=== PATIENT | female | born 1990 | race Caucasian/White ===

== ENCOUNTER 2020-03-29 09:30 | Emergency (ER) | payer OTHER, SELFPAY ==
[2020-03-29 09:50] VITALS: BP 118/67; PULSE 71; RESP 14; TEMP 36.6; O2SAT 100
--- NOTE | 2020-03-29 10:35 | ED.GENADULT ---
HPI - General Adult General Chief complaint: Upper Respiratory Infection Stated complaint: Right side of throat Time Seen by Provider: 03/29/20 10:35 Source: patient and RN notes reviewed Mode of arrival: ambulatory Limitations: no limitations History of Present Illness HPI narrative: 29-year-old female presents with complaints of sore throat and PND for 1 day. Claritin-D and Aleve with little relief. No high fevers, drooling, neck or throat swelling. Pain is unilateral, right per Cherelle. Hurts to swallow. Exacerbation factors consist of smoke exposure, PND, eating and drinking. No rhinorrhea and nasal congestion. No voice change. Denies chills, dyspnea, difficulty swallowing, jaw pain, dental pain, facial pain, foreign body sensation, and rash. Remains active. Cherelle denies being , LMP 03/19/20 and on control. The patient reports she have not been diagnosed with COVID-19. The patient reports she is not waiting for the results of a COVID-19 lab test. The patient reports she do not have fever, chills, weakness, fatigue, myalgia, or facial swelling. The patient reports she do not have a new or worsening cough or shortness of breath. Denies chest pain. The patient reports she do not have any rhinorrhea, congestion, nausea, vomiting, abdominal pain, and diarrhea. Tolerating po intake well. Denies recent traveling. Denies concerns for COVID-19 or exposures been home since [id number] order except for essential household needs, working, and return home. At this time, patient is not suspected of having COVID-19. Some parts of this dictation were generated by voice recognition software and may contain typographical and/or grammatical inaccuracies. Related Data Home Medications Medication Instructions Recorded Confirmed norgestrel-ethinyl estradiol 1 tablet PO DAILY 03/29/20 03/29/20 [Low-Ogestrel (28)] Allergies Allergy/AdvReac Type Severity Reaction Status Date / Time ibuprofen Allergy Unknown Swelling Verified 03/29/20 10:05 morphine Allergy Unknown Swelling Verified 03/29/20 10:05 Review of Systems Review of Systems: Narrative: CONSTITUTIONAL: Denies fever, chills, sweats. EYES: Denies visual changes, redness, discharge. ENT: Denies rhinorrhea, congestion, otalgia. Complains of RT side sore throat. CARDIOVASCULAR: Denies chest pain, palpitations, edema. RESPIRATORY: Denies dyspnea, wheezing, cough. GASTROINTESTINAL: Denies abdominal pain, nausea, vomiting, diarrhea. GENITOURINARY: Denies dysuria, hematuria, abnormal discharge. SKIN: Denies rash or itching. MUSCULOSKELETAL: Denies acute back pain, joint pain, or myalgia. NEUROLOGIC: Denies numbness or focal weakness. PSYCHIATRIC: Denies anxiety or depression. All systems reviewed & are unremarkable except as noted in HPI and below. [facility] Past Medical History Medical History (Updated 03/29/20 @ 11:00 by MELO Bergeron) Anxiety delivery delivered Depression Seasonal allergies Surgical History Surgical History (Updated 03/29/20 @ 11:00 by MELO Bergeron) H/O section History of tonsillectomy Family History Family History (Updated 03/29/20 @ 11:02 by MELO Bergeron) Father Hypertension Mother Alive and well Mother was adopted and family medical history unknown Social History Social History (Updated 03/29/20 @ 11:03 by MELO Bergeron) Smoking packs per day: 0.5 Smoking cigarettes per day: 10.0 Years smoked: 13 Smoking pack-years: 6.50 Smoking status: Current every day smoker Tobacco type: cigarettes Second hand tobacco smoke exposure: No Alcohol intake: current Substance use: never Living arrangements: with family Occupation/Education: occupation Gender identity (if verbalized by the patient): Female Comments At time of signature, agree with nurse past medical, surgical, social, and family history. There is no relevant family history p
== END 2020-03-29 10:50 | disposition home or self-care (01) ==
PROVIDERS: Emergency Provider Nurse Practitioner Family; PCP Physician Assistant
DX: J02.9 Acute pharyngitis, unspecified (principal); J30.9 Allergic rhinitis, unspecified; F17.210 Nicotine dependence, cigarettes, uncomplicated
CPT/HCPCS: 87081; 87880; 99213; G0463

== ENCOUNTER 2020-12-03 10:17 | Emergency (ER) | payer OTHER, SELFPAY ==
[2020-12-03 10:35] VITALS: BP 110/76; PULSE 98; RESP 16; TEMP 37.1; O2SAT 100
--- NOTE | 2020-12-03 10:47 | ED.URI ---
HPI - URI/Sore Throat General Chief Complaint: Upper Respiratory Infection Stated Complaint: sinus issues and fever Source: patient Mode of arrival: ambulatory Limitations: no limitations History of Present Illness HPI Narrative: Patient is a 30-year-old female who presents complaining of congestion, sore throat, runny nose and malaise x2 days. She reports mild cough, denies chest pain or shortness of breath. 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 She reports taking Aleve this a.m. without relief. MD elicited complaint: sore throat, rhinorrhea and nasal congestion Related Data Home Medications Medication Instructions Recorded Confirmed norgestrel-ethinyl estradiol 1 tablet PO DAILY 03/29/20 03/29/20 [Low-Ogestrel (28)] Allergies Allergy/AdvReac Type Severity Reaction Status Date / Time ibuprofen Allergy Unknown Swelling Verified 12/03/20 10:47 morphine Allergy Unknown Swelling Verified 12/03/20 10:47 Review of Systems Review of Systems: Narrative: CONSTITUTIONAL: Denies fever, chills, or sweats. EYES: Denies visual changes, redness, or discharge. ENT:Reports rhinorrhea, congestion, and sore throat. CARDIOVASCULAR: Denies chest pain, palpitations, or edema. RESPIRATORY: Reports mild cough, denies dyspnea. GASTROINTESTINAL: Denies abdominal pain, nausea, vomiting, or diarrhea. GENITOURINARY: Denies dysuria or hematuria. SKIN: Denies rash or itching. MUSCULOSKELETAL: Denies back pain, joint pain, or myalgia. NEUROLOGIC: Denies headache, numbness, dizziness, or weakness. PSYCHIATRIC: Denies anxiety or depression. [facility] Past Medical History Medical History Anxiety delivery delivered Depression Seasonal allergies Surgical History Surgical History H/O section History of tonsillectomy Family History Family History Father Hypertension Mother Alive and well Mother was adopted and family medical history unknown Social History Social History Smoking packs per day: 0.5 Smoking cigarettes per day: 10.0 Years smoked: 13 Smoking pack-years: 6.50 Smoking status: Current every day smoker Tobacco type: cigarettes Second hand tobacco smoke exposure: No Alcohol intake: current Substance use: never Gender identity (if verbalized by the patient): Female Comments At the time of signature, I have reviewed and agree with nursing past medical, surgical, social, and family history unless otherwise noted. Please see nursing chart for further information. There is no relevant family history pertinent to the presenting complaint. Exam Narrative: Exam Narrative: GENERAL: Well-appearing, well-nourished, and in no acute distress. HEAD: Normocephalic, atraumatic. EYES: No redness or drainage. Conjunctiva are normal. ENT: Mucous membranes pink and moist. Nares clear. No rhinorrhea. Throat normal. Uvula midline. NECK: AROM. Supple. No lymphadenopathy. CHEST: No respiratory distress. EXTREMITIES: Normal range of motion. No edema. SKIN: Warm, dry, no rash. NEURO: No focal deficits. Alert and oriented x3. Gait steady. PSYCH: Normal affect. No signs of depression or anxiety. MDM - URI/Sore Throat MDM Narrative Medical decision making narrative: Patient's rapid Covid was negative at this time. PCR sent to the lab. Discussed with patient quarantining and treatment of symptoms. Patient is stable for discharge to home with outpatient follow-up as discussed Differential Diagnosis Differential diagnosis: Likely upper respiratory infection, otitis media, viral infection and pharyngitis Lab Data Attestation: I reviewed the patient's lab results. Lab results narrative: Rapid Covid negative Critical Care Time C
[2020-12-03 10:49] VITALS: BP 110/76; PULSE 98; RESP 16; TEMP 37.1; O2SAT 100
[2020-12-04 18:19] LABS: SARS-CoV-2 RNA PCR Negative
== END 2020-12-03 11:15 | disposition home or self-care (01) ==
PROVIDERS: Emergency Provider Nurse Practitioner
DX: J06.9 Acute upper respiratory infection, unspecified (principal); Z20.822 Contact with and (suspected) exposure to COVID-19; F17.210 Nicotine dependence, cigarettes, uncomplicated
CPT/HCPCS: 87426; 99213; C9803; G0463; U0003; U0005

== ENCOUNTER 2021-01-17 09:52 | Emergency (ER) | payer OTHER, SELFPAY ==
[2021-01-17 10:05] VITALS: BP 116/66; PULSE 76; RESP 18; TEMP 36.8; O2SAT 99
[2021-01-17 10:33] VITALS: BP 116/66; PULSE 76; RESP 18; TEMP 36.8; O2SAT 99
--- NOTE | 2021-01-17 10:42 | ED.GENADULT ---
HPI - General Adult General Chief complaint: Unspecified Stated complaint: covid test Time Seen by Provider: 01/17/21 10:32 Source: patient and RN notes reviewed Mode of arrival: ambulatory Limitations: no limitations History of Present Illness HPI narrative: Patient presents today requesting a rapid Covid test. She was exposed to someone with Covid approximately 4 days ago. She does not currently have any symptoms. States she does have anxiety and has checked her temperature many many times in the last 4 days and it has been negative. complaint: Rapid Covid test Related Data Home Medications Medication Instructions Recorded Confirmed norgestrel-ethinyl estradiol 1 tablet PO DAILY 03/29/20 01/17/21 [Low-Ogestrel (28)] Allergies Allergy/AdvReac Type Severity Reaction Status Date / Time ibuprofen Allergy Unknown Swelling Verified 01/17/21 10:07 morphine Allergy Unknown Swelling Verified 01/17/21 10:07 Review of Systems Review of Systems: Narrative: CONSTITUTIONAL: Denies body aches, fever, chills, or sweats. EYES: Denies visual changes, redness, or discharge. ENT: Denies rhinorrhea, congestion, sore throat, or otalgia. CARDIOVASCULAR: Denies chest pain, palpitations, or edema. RESPIRATORY: Denies cough or dyspnea. GASTROINTESTINAL: Denies abdominal pain, nausea, vomiting, or diarrhea. GENITOURINARY: Denies dysuria or hematuria. SKIN: Denies rash, itching, or wounds. MUSCULOSKELETAL: Denies back pain, joint pain, or myalgia. NEUROLOGIC: Denies headache, numbness, tingling, or weakness. PSYCH: Denies depression or anxiety. [facility] Past Medical History Medical History Anxiety delivery delivered Depression Seasonal allergies Surgical History Surgical History H/O section History of tonsillectomy Family History Family History Father Hypertension Mother Alive and well Mother was adopted and family medical history unknown Social History Social History Smoking packs per day: 0.5 Smoking cigarettes per day: 10.0 Years smoked: 13 Smoking pack-years: 6.50 Smoking status: Current every day smoker Tobacco type: cigarettes Second hand tobacco smoke exposure: No Alcohol intake: current Substance use: never Gender identity (if verbalized by the patient): Female Comments At time of signature, I have reviewed and agree with nursing past medical, surgical, social and family history unless otherwise noted. Please see nursing chart for further information. There is no relevant family history pertinent to the presenting complaint Exam Narrative: Exam Narrative: GENERAL: Well-appearing, well-nourished, and in no acute distress. HEAD: Normocephalic, atraumatic. EYES: EOMI. No redness or drainage. Conjunctivae normal. ENT: Mucous membranes pink and moist. Nares clear. No rhinorrhea. TMs normal bilaterally. Throat normal. Uvula midline. NECK: Normal AROM. Supple. No lymphadenopathy. CHEST: No respiratory distress. Clear to auscultation. HEART: Regular rate and rhythm. No murmur appreciated. Normal peripheral pulses. EXTREMITIES: Normal range of motion. No edema. SKIN: Warm, dry, no rash. Capillary refill normal. Normal skin turgor. NEURO: No focal deficits. Alert and oriented x3. Gait steady. PSYCH: Normal affect. No signs of depression or anxiety. Course Vital Signs Vital signs: Vital Signs Temperature 98.2 F 01/17/21 10:05 Pulse Rate 76 01/17/21 10:05 Respiratory Rate 18 01/17/21 10:05 Blood Pressure 116/66 01/17/21 10:05 Pulse Oximetry 99 01/17/21 10:05 Temperature 98.2 F 01/17/21 10:33 Pulse Rate 76 01/17/21 10:33 Respiratory Rate 18 01/17/21 10:33 Blood Pressure 116/66 01/17/21 10:33 Pulse Oximet
--- NOTE | 2021-01-17 16:31 | PC.NURSE ---
noted poc [facility] form sent
== END 2021-01-17 10:50 | disposition home or self-care (01) ==
PROVIDERS: Emergency Provider Nurse Practitioner
DX: Z20.822 Contact with and (suspected) exposure to COVID-19 (principal); F17.210 Nicotine dependence, cigarettes, uncomplicated
CPT/HCPCS: 87426; 99213; C9803; G0463

== ENCOUNTER 2021-01-24 10:37 | Emergency (ER) | payer OTHER, SELFPAY ==
[2021-01-24 10:42] VITALS: BP 124/74; PULSE 85; RESP 14; TEMP 37.3; O2SAT 100
--- NOTE | 2021-01-24 10:50 | ED.EAR ---
HPI - Ear Problem General Chief complaint: Ear Stated complaint: ear pain Time Seen by Provider: 01/24/21 10:50 Source: patient, RN notes reviewed and police Mode of arrival: ambulatory Limitations: no limitations History of Present Illness HPI Narrative: [id number]-year-old female presents to the [facility] with complaints of left ear pain for 3 days. States that the pain radiates to the left jaw and teeth. Denies fevers. Has tried taking allergy mediations one time. Related Data Home Medications Medication Instructions Recorded Confirmed desogestrel-ethinyl estradiol 1 tablet PO DAILY 01/24/21 01/24/21 [Isibloom] Allergies Allergy/AdvReac Type Severity Reaction Status Date / Time ibuprofen Allergy Unknown Swelling Verified 01/24/21 10:51 morphine Allergy Unknown Swelling Verified 01/24/21 10:51 Review of Systems Review of Systems: Narrative: CONSTITUTIONAL: Denies fever, chills, or sweats. EYES: Denies visual changes, redness, or discharge. ENT: Denies rhinorrhea, sore throat. reports left otalgia and congestion. CARDIOVASCULAR: Denies chest pain, palpitations, or edema. RESPIRATORY: Denies cough or dyspnea. GASTROINTESTINAL: Denies abdominal pain, nausea, vomiting, or diarrhea. SKIN: Denies rash or itching. MUSCULOSKELETAL: Denies back pain, joint pain, or myalgia. NEUROLOGIC: Denies headache, numbness, or weakness. PSYCHIATRIC: Denies anxiety or depression. All other systems reviewed are negative, except as documented in HPI. [facility] Past Medical History Medical History Anxiety delivery delivered Depression Seasonal allergies Surgical History Surgical History H/O section History of tonsillectomy Family History Family History Father Hypertension Mother Alive and well Mother was adopted and family medical history unknown Social History Social History Smoking packs per day: 0.5 Smoking cigarettes per day: 10.0 Years smoked: 13 Smoking pack-years: 6.50 Smoking status: Current every day smoker Tobacco type: cigarettes Second hand tobacco smoke exposure: No Alcohol intake: current Substance use: never Gender identity (if verbalized by the patient): Female Comments At the time of my signature, I reviewed and agree with the nursing past medical, surgical, social, and family history. There is no relevant family history pertinent to the patient complaint. Exam Narrative: Exam Narrative: GENERAL: This is a well-nourished, well-developed patient, in no apparent distress. HEAD: normocephalic, atraumatic. EYES: PERRL. Sclera clear/white. Vision is grossly intact. EARS: External ears normal, auditory canals clear and without drainage bilaterally. Bilateral TMs without perforation. Bilateral TMs clear fluid lines noted with bulging on the left TM. NOSE: External nose normal with no obvious nasal discharge.bilateral nares with redness with left side injection noted. no rhinorrhea. THROAT: Mucous membranes moist, posterior pharynx clear. Moderate amount of postnasal drip NECK: Neck supple, non-tender without lymphadenopathy, masses or thyromegaly. CARDIOVASCULAR: Regular rate and rhythm without murmurs, gallops, or rubs. RESPIRATORY: Clear to auscultation. Breath sounds equal bilaterally. No wheezes, rales, or rhonchi. SKIN: warm, intact with no suspicious lesions or rash, good texture and turgor. NEURO: awake, alert, and oriented to person, place and time. There were no obvious focal neurologic abnormalities. EXTREMITIES: No joint tenderness, effusion, or edema noted. BACK: Nontender without deformity. Course Vital Signs Vital signs: Vital Signs Temperature 99.1 F 01/24/21 10:42 Pulse Rate 85 01/24/21 10:42 Respiratory Rate 14 01/24/21 10:42
== END 2021-01-24 11:07 | disposition home or self-care (01) ==
PROVIDERS: Emergency Provider Nurse Practitioner
DX: J30.9 Allergic rhinitis, unspecified (principal); H65.02 Acute serous otitis media, left ear; F17.210 Nicotine dependence, cigarettes, uncomplicated
CPT/HCPCS: 99211; G0463

== ENCOUNTER 2021-02-10 08:11 | Emergency (ER) | payer OTHER, SELFPAY ==
[2021-02-10 08:17] VITALS: BP 111/56; PULSE 86; RESP 20; TEMP 36.5; O2SAT 100
--- NOTE | 2021-02-10 08:18 | ED.URI ---
HPI - URI/Sore Throat General Chief Complaint: Upper Respiratory Infection Stated Complaint: Chest Congestion,Sore Throat Time Seen by Provider: 02/10/21 08:18 Source: patient and RN notes reviewed History of Present Illness HPI Narrative: Patient is a 30-year-old female who presents the urgent care with complaints of sore throat, chest congestion, body aches, chills, fatigue, nausea. Patient states that she was in contact at a birthday alliance party with a friend on Monday that just tested positive for Covid. Patient initially stated that her symptoms started yesterday and changed her story to Monday evening. Patient states that her throat is her main complaint. Reports of using Tylenol, Nasonex and Zyrtec without much improvement. Denies of any fevers. Denies any shortness of breath. No other acute complaints. No acute distress noted. Patient aware of the plan of care. Some parts of this dictation were generated by voice recognition software and may contain typographical and/or grammatical inaccuracies. Related Data Home Medications Medication Instructions Recorded Confirmed desogestrel-ethinyl estradiol 1 tablet PO DAILY 01/24/21 01/24/21 [Isibloom] Allergies Allergy/AdvReac Type Severity Reaction Status Date / Time ibuprofen Allergy Unknown Swelling Verified 02/10/21 08:42 morphine Allergy Unknown Swelling Verified 02/10/21 08:42 Review of Systems Review of Systems: Narrative: CONSTITUTIONAL: Denies fever. Reports of chills and sweats. Reports of fatigue EYES: Denies visual changes, redness, or discharge. ENT: Reports of sore throat and congestion CARDIOVASCULAR: Denies chest pain, palpitations, or edema. RESPIRATORY: Denies cough or dyspnea. GASTROINTESTINAL: Reports of nausea without vomiting, diarrhea or abdominal pain GENITOURINARY: Denies dysuria or hematuria. SKIN: Denies rash or itching. MUSCULOSKELETAL: Denies back pain, joint pain. Reports of body aches NEUROLOGIC: Denies headache, numbness, or weakness. All other systems reviewed are negative, except as documented in HPI. [facility] Past Medical History Medical History Anxiety delivery delivered Depression Seasonal allergies Surgical History Surgical History H/O section History of tonsillectomy Family History Family History Father Hypertension Mother Alive and well Mother was adopted and family medical history unknown Social History Social History Smoking packs per day: 0.5 Smoking cigarettes per day: 10.0 Years smoked: 13 Smoking pack-years: 6.50 Smoking status: Current every day smoker Tobacco type: cigarettes Second hand tobacco smoke exposure: No Alcohol intake: current Substance use: never Gender identity (if verbalized by the patient): Female Comments At the time of my signature, I reviewed and agree with the nursing past medical, surgical, social, and family history. There is no relevant family history pertinent to the patient complaint. Exam Narrative: Exam Narrative: GENERAL: This is a well-nourished, well-developed patient, in no apparent distress. HEAD: normocephalic, atraumatic. EYES: PERRL. Sclera clear/white. Vision is grossly intact. EARS: External ears normal, auditory canals clear and without drainage, TMs normal without perforation. Hearing grossly intact. NOSE: External nose normal with no obvious nasal discharge, nares without redness, no rhinorrhea. THROAT: Mucous membranes moist, mild to moderate erythema noted posterior oropharynx without exudate or ulceration. NECK: Neck supple, non-tender without lymphadenopathy CARDIOVASCULAR: Regular rate and rhythm without murmurs, gallops, or rubs. RESPIRATORY: Clear to auscultation. Breath sounds equal bilaterally. No wheezes, rales, or
[2021-02-11 16:56] LABS: SARS-CoV-2 RNA PCR Negative
== END 2021-02-10 08:47 | disposition home or self-care (01) ==
PROVIDERS: Emergency Provider Nurse Practitioner Family
DX: J06.9 Acute upper respiratory infection, unspecified (principal); Z20.822 Contact with and (suspected) exposure to COVID-19; F17.210 Nicotine dependence, cigarettes, uncomplicated
CPT/HCPCS: 87081; 87426; 87880; 99213; C9803; G0463; U0003; U0005

== ENCOUNTER 2021-05-20 08:00 | Emergency (ER) | payer OTHER, SELFPAY ==
[2021-05-20 08:10] VITALS: BP 98/62; PULSE 90; RESP 20; TEMP 36.1; O2SAT 100
--- NOTE | 2021-05-20 08:14 | ED.FEMALEGU ---
HPI - Female Genitourinary General Chief complaint: Urogenital-Female Stated complaint: poss uti Time Seen by Provider: 05/20/21 08:14 Source: patient and RN notes reviewed Mode of arrival: ambulatory Limitations: no limitations History of Present Illness HPI Narrative: 30-year-old female presents concern for urinary tract infection. Reports symptoms started 2 days ago with cloudy urine, frequency, dysuria, urgency, hematuria, nausea without vomiting. She reports due to the nausea she has not been able to drink much water. Reports she received a Covid vaccine earlier this week. She denies fever, body aches, chills, sweats, vomiting, diarrhea, flank pain. Denies intervention. MD elicited complaint: UTI Related Data Home Medications Medication Instructions Recorded Confirmed desogestrel-ethinyl estradiol 1 tablet PO DAILY 01/24/21 05/20/21 [Isibloom] Allergies Allergy/AdvReac Type Severity Reaction Status Date / Time ibuprofen Allergy Unknown Swelling Verified 05/20/21 08:20 of Lip/Tongue/Throat morphine Allergy Unknown Swelling Verified 05/20/21 08:20 Review of Systems Review of Systems: CONSTITUTIONAL: Denies malaise, chills, sweats, or fever. GASTROINTESTINAL: Denies abdominal pain, nausea, vomiting, diarrhea GENITOURINARY: Reports dysuria, frequency, urgency, hematuria. SKIN: Denies rash or itching. MUSCULOSKELETAL: Denies back pain, flank pain, or myalgia. All systems reviewed & are unremarkable except as noted in HPI and below PMF[facility] Past Medical History Medical History Anxiety delivery delivered Depression Seasonal allergies Surgical History Surgical History H/O section History of tonsillectomy Family History Family History Father Hypertension Mother Alive and well Mother was adopted and family medical history unknown Social History Social History Smoking packs per day: 0.5 Smoking cigarettes per day: 10.0 Years smoked: 13 Smoking pack-years: 6.50 Smoking status: Current every day smoker Tobacco type: cigarettes Second hand tobacco smoke exposure: No Alcohol intake: current Substance use: never Gender identity (if verbalized by the patient): Female Comments At time of signature, agree with nursing past medical, surgical, social and family history. There is no relevant family history pertinent to the presenting complaint Exam Narrative: GENERAL: Well-appearing, well-nourished, and in no acute distress. HEAD: Normocephalic. EYES: PERRLA, conjunctivae clear. NECK: Supple. No lymphadenopathy CHEST: Clear to auscultation. No respiratory distress. HEART: Regular rate and rhythm. ABDOMEN: Soft, nontender upon palpation, nondistended, normal active bowel sounds, no palpable or pulsatile masses, no guarding. No CVA tenderness SKIN: Warm, dry, no rash. NEURO: Alert and oriented x3. PSYCH: Normal mood and affect Course Course Emergency Course: Patient is aware of diagnosis, understands and agrees to treatment plan. Anticipatory guidance given. Patient agrees to follow-up as directed and is aware of reasons to seek care at the emergency department. Portions of this record may have been created with voice recognition software Vital Signs Vital signs: Reviewed. MDM - Female Genitourinary MDM Narrative Medical decision making narrative: Exam findings and UA show no acute concerns or changes; patient is non-toxic appearing and is in no distress. Patient is appropriate for outpatient treatment and follow-up. Differential Diagnosis Differential diagnosis: Likely urinary tract infection, vaginitis and cystitis Critical Care Time Critical Care Time Critical Care Time: No Discharge Plan Discharge Clinical Impression: Symptoms of uri
== END 2021-05-20 08:30 | disposition home or self-care (01) ==
PROVIDERS: Emergency Provider Nurse Practitioner
DX: R35.0 Frequency of micturition (principal); R30.0 Dysuria; R39.15 Urgency of urination; R51.9 Headache, unspecified; R11.0 Nausea
CPT/HCPCS: 81003; 87077; 87086; 87088; 87186; 99213; G0463

== ENCOUNTER 2021-06-14 11:02 | Emergency (ER) | payer OTHER, SELFPAY ==
[2021-06-14 11:10] VITALS: BP 108/67; PULSE 84; RESP 18; TEMP 37.2; O2SAT 100
[2021-06-14 11:36] VITALS: BP 108/67; PULSE 84; RESP 18; TEMP 37.2; O2SAT 100
--- NOTE | 2021-06-14 12:26 | ED.FEMALEGU ---
HPI - Female Genitourinary General Chief complaint: Urogenital-Female Stated complaint: Possible UTI Time Seen by Provider: 06/14/21 12:27 Source: patient Mode of arrival: ambulatory Limitations: no limitations History of Present Illness HPI Narrative: Cherelle Solano is a 30 yo female with no PMH who comes to [facility] with dysuria for the past 2 days. She is primarily complaining of frequency. She states her life has been pretty chaotic in the last week because her grandfather and there is been a lot of family stress going on she is not hydrating as much as she should and smoking a lot of cigarettes She has no back pain, no nausea, no vomiting, no diarrhea Related Data Home Medications Medication Instructions Recorded Confirmed desogestrel-ethinyl estradiol 1 tablet PO DAILY 01/24/21 06/14/21 [Isibloom] Allergies Allergy/AdvReac Type Severity Reaction Status Date / Time ibuprofen Allergy Unknown Swelling Verified 06/14/21 11:23 of Lip/Tongue/Throat morphine Allergy Unknown Swelling Verified 06/14/21 11:23 Review of Systems Review of Systems: CONSTITUTIONAL: Denies fever, chills, sweats. EYES: Denies visual changes, redness, discharge. ENT: Denies rhinorrhea, congestion, sore throat, otalgia. CARDIOVASCULAR: Denies chest pain, palpitations, edema. RESPIRATORY: Denies dyspnea, wheezing, cough GASTROINTESTINAL: Denies abdominal pain, nausea, vomiting, diarrhea. GENITOURINARY: As dysuria, no hematuria, abnormal discharge SKIN: Denies rash or itching. NEUROLOGIC: Denies numbness, or focal weakness. PSYCHIATRIC: Denies anxiety or depression. [facility] Past Medical History Medical History Anxiety delivery delivered Depression Seasonal allergies Surgical History Surgical History H/O section History of tonsillectomy Family History Family History Father Hypertension Mother Alive and well Mother was adopted and family medical history unknown Social History Social History Smoking packs per day: 0.5 Smoking cigarettes per day: 10.0 Years smoked: 13 Smoking pack-years: 6.50 Smoking status: Current every day smoker Tobacco type: cigarettes Second hand tobacco smoke exposure: No Alcohol intake: current Substance use: never Gender identity (if verbalized by the patient): Female Comments At time of signature, I agree with nursing past medical, surgical, social and family history. There is no relevant family history pertinent to the presenting complaint. Exam Narrative: GENERAL: This is a well-nourished, well-developed patient, in mild distress. HEAD: normocephalic, atraumatic. EYES: Sclera clear/white. Vision is grossly intact. EARS: External ears normal, Hearing grossly intact. NOSE: External nose normal without nasal discharge, nares without redness, no rhinorrhea. THROAT: Mucous membranes moist, posterior pharynx pink NECK: Neck supple, non-tender CARDIOVASCULAR: Regular rate and rhythm without murmurs, gallops, or rubs. RESPIRATORY: Clear to auscultation. Breath sounds equal bilaterally. No wheezes, rales, or rhonchi. GASTROINTESTINAL: Abdomen soft, SKIN: warm, intact with no suspicious lesions or rash, good texture and turgor. NEURO: awake, alert, and oriented to person, place and time. There were no obvious focal neurologic abnormalities. Steady gait EXTREMITIES: Normal range of motion. BACK: Nontender without deformity Course Course Emergency Course: [facility] of dysuria UA looks clear but will be sent for culture Given cephalexin 500 mg 1 twice daily x3 days +2 doses of Diflucan Vital Signs Vital signs: Vital Signs Temperature 98.9 F 06/14/21 11:10 Pulse Rate 84
== END 2021-06-14 12:35 | disposition home or self-care (01) ==
PROVIDERS: Emergency Provider Nurse Practitioner
DX: R30.0 Dysuria (principal); F17.210 Nicotine dependence, cigarettes, uncomplicated
CPT/HCPCS: 81003; 87086; 99213; G0463

== ENCOUNTER 2021-07-12 10:52 | Emergency (ER) | payer OTHER, SELFPAY ==
[2021-07-12 11:00] VITALS: BP 107/78; PULSE 85; RESP 16; TEMP 37.7; O2SAT 100
--- NOTE | 2021-07-12 11:54 | ED.FEMALEGU ---
HPI - Female Genitourinary General Chief complaint: Urogenital-Female Stated complaint: poss uti Time Seen by Provider: 07/12/21 11:49 Source: patient and RN notes reviewed Mode of arrival: ambulatory Limitations: no limitations History of Present Illness HPI Narrative: Patient presents today complaining of dysuria and malodorous urine since yesterday. Denies hematuria, abdominal pain, fever, frequency, urgency, back pain. MD elicited complaint: dysuria Related Data Home Medications Medication Instructions Recorded Confirmed desogestrel-ethinyl estradiol 1 tablet PO DAILY 01/24/21 07/12/21 [Isibloom] Allergies Allergy/AdvReac Type Severity Reaction Status Date / Time ibuprofen Allergy Unknown Swelling Verified 07/12/21 11:17 of Lip/Tongue/Throat morphine Allergy Unknown Swelling Verified 07/12/21 11:17 Review of Systems Review of Systems: CONSTITUTIONAL: Denies body aches, fever, chills, or sweats. EYES: Denies visual changes, redness, or discharge. ENT: Denies rhinorrhea, congestion, sore throat, or otalgia. CARDIOVASCULAR: Denies chest pain, palpitations, or edema. RESPIRATORY: Denies cough or dyspnea. GASTROINTESTINAL: Denies abdominal pain, nausea, vomiting, or diarrhea. GENITOURINARY: Denies hematuria. + Dysuria, malodorous urine SKIN: Denies rash, itching, or wounds. MUSCULOSKELETAL: Denies back pain, joint pain, or myalgia. NEUROLOGIC: Denies headache, numbness, tingling, or weakness. PSYCH: Denies depression or anxiety. [facility] Past Medical History Medical History Anxiety delivery delivered Depression Seasonal allergies Surgical History Surgical History H/O section History of tonsillectomy Family History Family History Father Hypertension Mother Alive and well Mother was adopted and family medical history unknown Social History Social History Smoking packs per day: 0.5 Smoking cigarettes per day: 10.0 Years smoked: 13 Smoking pack-years: 6.50 Smoking status: Current every day smoker Tobacco type: cigarettes Second hand tobacco smoke exposure: No Alcohol intake: current Substance use: never Gender identity (if verbalized by the patient): Female Comments At time of signature, I have reviewed and agree with nursing past medical, surgical, social and family history unless otherwise noted. Please see nursing chart for further information. There is no relevant family history pertinent to the presenting complaint Exam Narrative: GENERAL: Well-appearing, well-nourished, and in no acute distress. HEAD: Normocephalic, atraumatic. EYES: EOMI. No redness or drainage. Conjunctivae normal. ENT: Mucous membranes pink and moist. NECK: Normal AROM. CHEST: No respiratory distress. Clear to auscultation. HEART: Regular rate and rhythm. No murmur appreciated. Normal peripheral pulses. ABDOMEN: Soft, nontender, nondistended, normal active bowel sounds.-CVAT MUSCULOSKELETAL: No bony tenderness. EXTREMITIES: Normal range of motion. No edema. SKIN: Warm, dry, no rash. Capillary refill normal. Normal skin turgor. NEURO: No focal deficits. Alert and oriented x3. Gait steady. PSYCH: Normal affect. No signs of depression or anxiety. Course Vital Signs Vital signs: Vital Signs Temperature 99.9 F H 07/12/21 11:00 Pulse Rate 85 07/12/21 11:00 Respiratory Rate 16 07/12/21 11:00 Blood Pressure 107/78 07/12/21 11:00 Pulse Oximetry 100 07/12/21 11:00 Temperature 99.9 F H 07/12/21 11:00 Pulse Rate 85 07/12/21 11:00 Respiratory Rate 16 07/12/21 11:00 Blood Pressure 107/78 07/12/21 11:00 Pulse Oximetry 100 07/12/21 11:00 Reviewed MDM - Female Genitourinary Differential
== END 2021-07-12 12:04 | disposition home or self-care (01) ==
PROVIDERS: Emergency Provider Nurse Practitioner
DX: N30.01 Acute cystitis with hematuria (principal); F17.210 Nicotine dependence, cigarettes, uncomplicated
CPT/HCPCS: 81003; 87077; 87086; 87088; 87186; 99213; G0463

== ENCOUNTER 2021-11-02 08:33 | Emergency (ER) | payer OTHER, SELFPAY ==
[2021-11-02 08:38] VITALS: BP 111/64; PULSE 76; RESP 16; TEMP 36.9; O2SAT 100
--- NOTE | 2021-11-02 08:41 | ED.URI ---
HPI - URI/Sore Throat General Chief Complaint: Upper Respiratory Infection Stated Complaint: Chest Congestion/Headache Time Seen by Provider: 11/02/21 08:41 Source: patient and RN notes reviewed History of Present Illness HPI Narrative: Patient is a 31-year-old female presents the urgent care with complaints of chest congestion, cough, headache and fatigue for the last 4 days. Patient was just informed that she was exposed to COVID. Patient took TheraFlu last night but otherwise has not taken anything [id number] for her symptoms. Denies any nausea or vomiting. Patient has been COVID vaccinated. No other acute complaints. No acute distress noted. Patient aware of the plan of care. Some parts of this dictation were generated by voice recognition software and may contain typographical and/or grammatical inaccuracies. Related Data Home Medications Medication Instructions Recorded Confirmed desogestrel-ethinyl estradiol 1 tablet PO DAILY 01/24/21 11/02/21 [Isibloom] Allergies Allergy/AdvReac Type Severity Reaction Status Date / Time ibuprofen Allergy Unknown Swelling Verified 07/12/21 11:17 of Lip/Tongue/Throat morphine Allergy Unknown Swelling Verified 07/12/21 11:17 Review of Systems Review of Systems: CONSTITUTIONAL: Denies fever, chills, or sweats. Reports of fatigue EYES: Denies visual changes, redness, or discharge. ENT: Reports rhinorrhea, congestion CARDIOVASCULAR: Denies chest pain, palpitations, or edema. RESPIRATORY: Reports of chest congestion cough without dyspnea GASTROINTESTINAL: Denies abdominal pain, nausea, vomiting, or diarrhea. GENITOURINARY: Denies dysuria or hematuria. SKIN: Denies rash or itching. MUSCULOSKELETAL: Denies back pain, joint pain, or myalgia. NEUROLOGIC: Reports of headache All other systems reviewed are negative, except as documented in HPI. [facility] S[facility] TO [facility] Past Medical History Medical History Anxiety delivery delivered Depression Seasonal allergies Surgical History Surgical History H/O section History of tonsillectomy Family History Family History Father Hypertension Mother Alive and well Mother was adopted and family medical history unknown Social History Social History Smoking packs per day: 0.5 Smoking cigarettes per day: 10.0 Years smoked: 13 Smoking pack-years: 6.50 Smoking status: Current every day smoker Tobacco type: cigarettes Second hand tobacco smoke exposure: No Alcohol intake: current Substance use: never Gender identity (if verbalized by the patient): Female Comments At the time of my signature, I reviewed and agree with the nursing past medical, surgical, social, and family history. There is no relevant family history pertinent to the patient complaint. Exam Narrative: GENERAL: This is a well-nourished, well-developed patient. Appears fatigued HEAD: normocephalic, atraumatic. EYES: PERRL. Sclera clear/white. Vision is grossly intact. EARS: External ears normal, auditory canals clear and without drainage, TMs normal without perforation. Hearing grossly intact. NOSE: External nose normal with no obvious nasal discharge. Bilateral erythemic nares with clear to yellow rhinorrhea THROAT: Mucous membranes moist, posterior pharynx clear. Moderate postnasal drainage NECK: Neck supple CARDIOVASCULAR: Regular rate and rhythm without murmurs, gallops, or rubs. RESPIRATORY: Clear to auscultation. Breath sounds equal bilaterally. No wheezes, rales, or rhonchi. SKIN: warm, intact with no suspicious lesions or rash, good texture and turgor. NEURO: awake, alert, and oriented to person, place and time. There were no obvious focal neurologic abnormalities. EXTREMITIES: No clubbing, c
== END 2021-11-02 08:58 | disposition home or self-care (01) ==
PROVIDERS: Emergency Provider Nurse Practitioner Family
DX: U07.1 COVID-19 (principal); F17.210 Nicotine dependence, cigarettes, uncomplicated
CPT/HCPCS: 87426; 99213; C9803; G0463

== ENCOUNTER 2022-09-21 19:34 | Emergency (ER) | payer SELFPAY ==
[2022-09-21 19:45] VITALS: BP 118/73; PULSE 93; RESP 16; TEMP 37.2; O2SAT 100
--- NOTE | 2022-09-21 21:12 | ED.URI ---
HPI - URI/Sore Throat General Chief Complaint: Upper Respiratory Infection Stated Complaint: Sore Throat Time Seen by Provider: 09/21/22 21:12 History of Present Illness HPI Narrative: there is a 1-year-old female presenting for complaint of sore throat and cough for 1 week. She endorses a sore throat pain is worse with coughing. Symptoms are worse at night. Endorses pain with talking and swallowing. Denies Shortness of breath, wheezing, nausea, vomiting, fevers. Taking Aleve for symptoms. She endorses she has anxiety related to prednisone and cannot take ibuprofen due to allergy. Related Data Home Medications Medication Instructions Recorded Confirmed desogestrel 0.15 mg-ethinyl 1 tablet PO DAILY 01/24/21 09/21/22 estradiol 0.03 mg tablet (Isibloom) Allergies Allergy/AdvReac Type Severity Reaction Status Date / Time ibuprofen Allergy Unknown Swelling Verified 09/21/22 20:26 of Lip/Tongue/Throat morphine Allergy Unknown Swelling Verified 09/21/22 20:26 Review of Systems Review of Systems: CONSTITUTIONAL: Denies body aches, fever, or sweats. EYES: Denies visual changes, redness, or discharge. ENT: Per HPI CARDIOVASCULAR: Denies chest pain, palpitations, or edema. RESPIRATORY: Denies dyspnea. GASTROINTESTINAL: Denies abdominal pain, nausea, vomiting, or diarrhea. SKIN: Denies rash, itching, or wounds. MUSCULOSKELETAL: Denies back pain, joint pain, or myalgia. NEUROLOGIC: Denies headache PMFSH Past Medical History Medical History Anxiety delivery delivered Depression Seasonal allergies Surgical History Surgical History H/O section History of tonsillectomy Family History Family History Father Hypertension Mother Alive and well Mother was adopted and family medical history unknown Social History Social History Smoking packs per day: 0.5 Smoking cigarettes per day: 10.0 Years smoked: 13 Smoking pack-years: 6.50 Smoking status: Current every day smoker Tobacco type: cigarettes Second hand tobacco smoke exposure: No Alcohol intake: current Substance use: never Gender identity (if verbalized by the patient): Female Exam Narrative: GENERAL: Ill-appearing, no acute distress. EYES: conjunctivae clear ENT: Mucous membranes moist. TM pearly valadez with normal light reflex bilaterally; no tragal tenderness. Oropharynx erythematous without lesions. Tonsils absent. No drooling, no trismus, uvula midline. No tripod positioning, hot potato voice, or soft palate swelling. Patient whispers. NECK: Supple. No lymphadenopathy CHEST: Clear to auscultation, breath sounds equal. No respiratory distress, whispers in full sentences. HEART: Regular rate and rhythm. No murmur heard. SKIN: Warm, dry, no rash. NEURO: Alert and oriented x3. Course Course Emergency Course: Patient is aware of diagnosis, understands and agrees to treatment plan. Anticipatory guidance given. Patient agrees to follow-up as directed and is aware of reasons to seek care at the emergency department. Portions of this record may have been created with voice recognition software Level of Care: Express Care Visit Vital Signs Vital signs: Vital Signs Temperature 99 F 09/21/22 19:45 Pulse Rate 93 09/21/22 19:45 Respiratory Rate 16 09/21/22 19:45 Blood Pressure 118/73 09/21/22 19:45 Pulse Oximetry 100 09/21/22 19:45 Oxygen Delivery Room Air 09/21/22 19:45 Temperature 99 F 09/21/22 19:45 Pulse Rate 93 09/21/22 19:45 Respiratory Rate 16 09/21/22 19:45 Blood Pressure 118/73 09/21/22 19:45 Pulse Oximetry 100 09/21/22 19:45 Oxygen Delivery Room Air 09/21/22 19:45 MDM - URI/Sore Throat MDM Narrative M
== END 2022-09-21 21:25 | disposition home or self-care (01) ==
PROVIDERS: Emergency Provider Nurse Practitioner Family
DX: J02.9 Acute pharyngitis, unspecified (principal); Z20.822 Contact with and (suspected) exposure to COVID-19; F17.210 Nicotine dependence, cigarettes, uncomplicated
CPT/HCPCS: 87081; 87426; 87880; 99213; C9803; G0463

== ENCOUNTER 2023-03-28 11:05 | Emergency (ER) | payer SELFPAY ==
[2023-03-28 11:15] VITALS: BP 102/66; PULSE 111; RESP 16; TEMP 37.1; O2SAT 98
--- NOTE | 2023-03-28 12:00 | ED.GENADULT ---
HPI - General Adult General Chief complaint: Upper Respiratory Infection Stated complaint: Cough/Headache/Sore Throat Source: patient Mode of arrival: ambulatory Limitations: no limitations History of Present Illness HPI narrative: Patient presents for evaluation of sick symptoms for last 1.5 weeks. Symptoms include sinus congestion, clear rhinorrhea, sore throat and mild cough. No fever, chills, nausea, vomiting, diarrhea. Her daughter has had similar symptoms. She has tried taking Aleve for symptoms. She came in today requesting work to allow her to return to work tomorrow. She does not wish to proceed with any diagnostic testing. She does use an electronic cigarette. Related Data Home Medications Medication Instructions Recorded Confirmed desogestrel 0.15 mg-ethinyl 1 tablet PO DAILY 01/24/21 03/28/23 estradiol 0.03 mg tablet (Isibloom) Allergies Allergy/AdvReac Type Severity Reaction Status Date / Time ibuprofen Allergy Unknown Swelling Verified 09/21/22 20:26 of Lip/Tongue/Throat morphine Allergy Unknown Swelling Verified 09/21/22 20:26 Review of Systems Review of Systems: CONSTITUTIONAL: Denies fever, chills, or sweats. EYES: Denies visual changes, redness, or discharge. ENT: Reports sinus congestion, clear rhinorrhea, sore throat. CARDIOVASCULAR: Denies chest pain, palpitations, or edema. RESPIRATORY: Reports mild cough. Denies shortness of breath. GASTROINTESTINAL: Denies abdominal pain, nausea, vomiting, or diarrhea. GENITOURINARY: Denies dysuria or hematuria. SKIN: Denies rash or itching. MUSCULOSKELETAL: Denies back pain, joint pain, or myalgia. NEUROLOGIC: Denies headache, numbness, dizziness, or weakness. PSYCHIATRIC: Denies anxiety or depression. [facility] Past Medical History Medical History Anxiety delivery delivered Depression Seasonal allergies Surgical History Surgical History H/O section History of tonsillectomy Family History Family History Father Hypertension Mother Alive and well Mother was adopted and family medical history unknown Social History Social History Smoking packs per day: 5 Smoking cigarettes per day: 100.0 Years smoked: 13 Smoking pack-years: 65.00 Smoking status: Current every day smoker Tobacco type: cigarettes and e-cigarettes/vaping Second hand tobacco smoke exposure: No Alcohol intake: current Substance use: never Living arrangements: with family Occupation/Education: occupation Gender identity (if verbalized by the patient): Female Exam Narrative: GENERAL: Well-appearing, well-nourished, and in no acute distress. HEAD: Normocephalic, atraumatic. EYES: PERRLA and EOMI. ENT: Nares clear, no rhinorrhea or epistaxis. Mucous membranes moist. Oropharynx without tonsillar hypertrophy exudate or other lesions. Bilateral TMs pearly valadez nonbulging NECK: Supple. No adenopathy or masses. No carotid bruits or JVD CHEST: Clear to auscultation. No respiratory distress. No wheezes rales or rhonchi HEART: Regular rate and rhythm. No murmur heard. Normal peripheral pulses. ABDOMEN: Soft, nontender, nondistended, normal active bowel sounds. EXTREMITIES: Normal range of motion. No edema. SKIN: Warm, dry, no rash. NEURO: No focal deficits. Alert and oriented x3. PSYCH: Normal mood and affect. Course Course Emergency Course: This is a 32-year-old female who presented for evaluation of sick symptoms. I did offer to perform diagnostic testing, which she declined. She states that she is simply here for a note to return to work tomorrow. She feels over symptoms are improving and will take [id number] agents for symptom management. Follow up primary provid
== END 2023-03-28 11:55 | disposition home or self-care (01) ==
PROVIDERS: Emergency Provider Nurse Practitioner
DX: J06.9 Acute upper respiratory infection, unspecified (principal); F17.290 Nicotine dependence, other tobacco product, uncomplicated
CPT/HCPCS: 99211; G0463

== ENCOUNTER 2023-12-02 08:02 | Emergency (ER) | payer SELFPAY ==
[2023-12-02 08:08] VITALS: BP 117/75; PULSE 87; RESP 18; TEMP 36.9; O2SAT 100
--- NOTE | 2023-12-02 08:16 | ED.GENADULT ---
HPI - General Adult General Chief complaint: Skin/Abscess/Foreign Body Stated complaint: right thumb poss infection Time Seen by Provider: 12/02/23 08:17 Source: patient, RN notes reviewed and old records reviewed Mode of arrival: ambulatory Limitations: no limitations History of Present Illness HPI narrative: 33-year-old female presents to the [facility] with concerns for a right thumb infection Patient states last night side of the nail on the ulnar aspect swollen, painful. Patient states that this morning it started draining white liquid. Has cleaned multiple times with peroxide. Tender to palpation Patient has fake nails on Onset (ago): day(s) (1) Treatments prior to arrival: other (Peroxide) Related Data Home Medications Medication Instructions Recorded Confirmed desogestrel 0.15 mg-ethinyl 1 tablet PO DAILY 01/24/21 03/28/23 estradiol 0.03 mg tablet (Isibloom) Allergies Allergy/AdvReac Type Severity Reaction Status Date / Time ibuprofen Allergy Unknown Swelling Verified 09/21/22 20:26 of Lip/Tongue/Throat morphine Allergy Unknown Swelling Verified 09/21/22 20:26 Review of Systems Review of Systems: All systems reviewed & are unremarkable except as noted in HPI and below Constitutional: Constitutional: Reports no additional constitutional complaints ENT: Reports system reviewed and no additional complaints, except as documented Cardiovascular: Cardiovascular: Reports no additional cardiovascular complaints, Denies chest pain and Denies dyspnea Respiratory: Respiratory: Reports no additional respiratory complaints, Denies chest congestion, Denies cough and Denies dyspnea Gastrointestinal: Gastrointestinal: Reports no additional gastrointestinal complaints, Denies abdominal pain, Denies nausea and Denies vomiting Musculoskeletal: Musculoskeletal: Reports no additional musculoskeletal complaints Integumentary/Breasts: Skin/Breast: Reports as per HPI Neurologic: Reports system reviewed and no additional complaints, except as documented Psychiatric: Psychiatric: Reports no additional psychiatric complaints Allergic/Immunologic: Allergic/Immunologic: Reports no additional allergic/immunologic complaints PMFSH Past Medical History Medical History Anxiety delivery delivered Depression Seasonal allergies Surgical History Surgical History H/O section History of tonsillectomy Family History Family History Father Hypertension Mother Alive and well Mother was adopted and family medical history unknown Social History Social History (Updated 12/02/23 @ 08:53 by Maria T Ibanez APRN) Smoking packs per day: 0.5 Smoking cigarettes per day: 10.0 Years smoked: 13 Smoking pack-years: 6.50 Smoking status: Current every day smoker Tobacco type: cigarettes and e-cigarettes/vaping Second hand tobacco smoke exposure: No Alcohol intake: current Substance use: never Living arrangements: with family Occupation/Education: occupation Gender identity (if verbalized by the patient): Female Comments At the time of my signature, I reviewed and agree with the nursing past medical, surgical, social, and family history. There is no relevant family history pertinent to the patient complaint. Exam Const: General: cooperative, healthy appearing, comfortable, no acute distress, well developed, alert and well nourished Nutritional Appearance: well nourished Orientation/consciousness: patient oriented x3 Limitations: no limitations HENMT: Head: normal to inspection Ears: hearing grossly normal bilaterally and external ears normal Face/Nose/Sinus: Normal external nose present, Normal nares present, Normal nasal mucous membranes and turbinates present, normal facial exam and face symmetric Face an
== END 2023-12-02 08:30 | disposition home or self-care (01) ==
PROVIDERS: Emergency Provider Nurse Practitioner
DX: L03.011 Cellulitis of right finger (principal); F17.210 Nicotine dependence, cigarettes, uncomplicated; F17.290 Nicotine dependence, other tobacco product, uncomplicated
CPT/HCPCS: 99213; G0463